=== PATIENT | female | born 1935 | race Caucasian/White ===

== ENCOUNTER 2017-07-29 20:27 | Inpatient (IN) ==
--- NOTE | 2017-07-30 00:55 | Event Note ---
Date of Encounter: 07/30/17 Time of Encounter: 00:53 Patient was seen and examined. I agree with the H&P as written by the Resident Physician. Please note that the patient is mostly unresponsive and minimal documentation was sent despite me asking for complete documentations to be sent over when we accepted the patient. We are requesting records to be sent just for completeness sake as the patient is mostly here for palliative purposes and plan of care unlikely to change with those records. I had an extensive talk with the family (son, daughter in law, and two grand-daughters with one of them being an RN). Briefly, the patient with a history of CAD, HTN, HLD, who had recently been diagnosed with a grade 1 Endometrial AdenoCA. She was recommended total hysterectomy and BSO. She went to [place] for that and underwent the procedure on 07/12. 2 hours post op, she became hemodynamically unstable and had signs of an internal bleed. She coded as well and was in PEA arrest. A code was ran and she had ROSC. She was taken emergently to the OR on POD 0 to try to locate a bleed. She ended up coding again in the OR and was shocked. She ended up getting abdominal packing and was taken the ICU intubated and on pressors. She was taken again to the OR 3 days later for packing removal and abdomen closure. Her stay was complicated by pseudomonas pneumonia and C. Diff. She was on abx for both. She has required significant amount of blood products. Family tells me about 40 units total of PRBCs, platelets, FFPs, Cryo. Eventually, family was given the option of a trach a couple of days ago. She had a living will that stated that she did not want life sustaining measures. They eventually extubated her a couple of days ago and was doing ok post extubation but has deteriorated since. She has become less and less responsive. She is unable to wake up. Code status was changed there to DNR-CCA. All abx and blood draws were stopped 2 days ago. Eventually, the family wanted her to be transferred here for a couple of reasons. One being that they wanted her to here when she dies. They are also not happy with the care there and told me "they are fed up". Patient is unresponsive. Pupils equal and reactive S1, S2, No m/r/g Diminished with course breath sounds throughout Rectal tube noted. A big vertical surgical incision with frankie noted. A couple of adjacent areas with 4x4's for skin tears Generalized anasarca Will admit the patient for comfort care and palliative to see in the morning No labs draws. No abs to be continued here Obtain records from [place] Patient seems to be resting comfortably now with no apparent distress Will add ativan PRN, Fentanyl PRN, Scopolamine patch
--- NOTE | 2017-07-30 01:38 | Internal Med History&Physical ---
Date of Encounter: 07/30/17 Time of Encounter: 01:00 Internal Medicine - H&P: HPI Chief complaint: Pain Admitted From: Intrahospital Transfer Plans for Post Hospital Care: Hospice - Home History of present illness: Ms. Herr is a 82 year old female with past medical history of CAD, hypertension , hyperlipidemia, recently diagnosed grade 1 endometrial adenocarcinoma. On 07/12, the patient underwent RATLH, BSO, SLND, vulvar biopsy, extensive SANDRA, small bowel oversew for grade 1 endometrial cancer. Final pathology demonstrated stage 1A endometrial carinoma with sentnel lyph nodes negative for metastatic disease, and lichen sclerosis of the vulva. The patient's immediate post-op course was complicated by hypotension for which he was transferred to the surgical ICU. At the ICU, she had cardiac arrest with PEA; ACLS with ROSC was performed. Arrest was due to acute blood loss anemia with undetectable Hgb at the time, requiring massive blood transfussion. Patient was then taken to the OR for emergent exploratory laparotomy, evacuation of hemoperitoneum, small bowel resection, oversew of pelvic area, packing placement, and wound vac placement. Patient required ventilator support, pressor support, and intermittent transfusion of blood products. Patient was again taken to the OR on 07/15/17 for exploratory laparotomy, removal of intraabdominal and pelvic packing, and small bowel reanastomosis. While in the ICU, patient developed C. diff infection and managed with PO vancomycin. Nutrition was maintained with tube feedings. A. fib was managed with amiodarone infusion and heparin drip. Patient remained intubated until 07/25 and was transitioned to BIPAP and RA. Family decided to make transition to hospice care on 07/29/17 and requested to be transfered to [facility] to be closer to home. Past Med Surg Social Fam HX - Past Medical History Medical history: coronary artery disease, hyperlipidemia, hypertension, RA, other Psychiatric history: no psych history - Past Surgical History Surgical History: other - Social History Smoking Status: Never smoker Smokeless Tobacco Status: No Alcohol use: none Drug use: none - Family History Father Living Status: Hx Family Cardiac Disorders: Yes Mother Living Status: Hx Family Cardiac Disorders: Yes (hypertension) Hx Family Cancer: Yes (liver cancer) Hx Family Endocrine Disorder: Yes (diabetes mellitus) Sister Hx Family Cardiac Disorders: Yes Hx Family Endocrine Disorder: Yes (diabetes) Hx Family Neuromuscular Disorders: Yes (CVA) Brother Hx Family Cardiac Disorders: Yes Hx Family Neuromuscular Disorders: Yes (seizures) Internal Medicine - H&P: Meds Furosemide [Lasix] 40 mg PO DAILY PRN 11/18/14 [History] Metoprolol [Lopressor] 12.5 mg PO BID 11/18/14 [History] [place]-3/Dha/Epa/Fish Oil [Fish Oil EC 1,200 mg Softgel] 1,200 mg PO DAILY [History] Potassium Chloride 20 meq PO BIDWM 11/18/14 [History] Docusate [Colace] 100 mg PO BID PRN #0 capsule 11/22/14 [Rx] Aspirin [Lo-Dose Aspirin EC] 81 mg PO DAILY 05/01/17 [History] Tramadol HCl [Ultram] 50 mg PO BID PRN 05/01/17 [History] Citalopram Hydrobromide [Citalopram HBr] 20 mg PO DAILY 05/28/17 [History] Ibuprofen [Motrin] 800 mg PO Q8HR PRN #30 tablet 05/28/17 [Rx] Lutein 6 mg PO DAILY 05/28/17 [History] Red Yeast Rice [Red Yeast Rice] 600 mg PO DAILY 05/28/17 [History] hydrALAZINE [HydrALAZINE] 25 mg PO BID 05/28/17 [History] 3 Allergy/AdvReac Type Severity Reaction Status Date / Time CISCO Inhibitors Allergy Cough Verified 05/28/17 08:27 ciprofloxacin [From Cipro] Allergy Rash Verified 05/28/17 08:27 Pneumococcal Vaccine Allergy Numbness Verified 05/28/17 08:27 [From Pnu-Imune] rifampin Allergy Rash Verified 05/28/17 08:27 Sulfa (Sulfonamide Allergy Itching Verified 05/28/17 08:27 Antibiotics) sulfamethizole Allergy Rash Verified 05/28/17 08:27 trimethoprim Allergy Rash Verified 05/28/17 08:27 lisinopril AdvReac Cough Verified 05/28/17 08:27 ROS unobtainable: due to mental status All Systems PM: A 10-system review of systems was performed and is negative for pertinent findings except as documented above in the HPI. - Constitutional Vitals: Temp Pulse Resp BP Pulse Ox 97.4 F L 70 14 158/74 97 07/30/17 00:35 07/30/17 00:35 07/30/17 00:35 07/30/17 00:35 07/30/17 00:35 Exam: Patient is unresponsive. - Head Head exam: Present: normocephalic - Eye Eye exam: Present: PERRL, conjuntiva pink, sclera anicteric Pupils: Present: PERRL - Neck Neck exam general surgery: Present: trachea midline. Absent: lymphadenopathy - Respiratory Respiratory exam: Present: respiratory distress, rhonchi, wheezes. Absent: accessory muscle use, rales - Cardiovascular Cardiovascular exam: Present: +S1, +S2, systolic murmur, tachycardia. Absent: diastolic murmur, gallop, rubs - GI/Abdominal GI/Abdominal exam: Present: hypoactive bowel sounds, rigid. Absent: distended, tenderness Additional comments: anasarca. - Extremities Exam Extremities exam: Present: warm, radial pulses palpable and symmetrical. Absent : calf tenderness, cyanotic, pedal edema - Neurological Exam Additional comments: altered. - Skin Skin exam: Present: dry, intact - Assessment and plan (1) Goals of care, counseling/discussion Current Visit: Yes Status: Acute Assessment and plan: Please refer to HPI. Patient here for hospice and comfort care. Palliative consult pending for goals of care. Continue with pain management Continue Ativan, Scopolamine patch, fentanyl. (2) Encephalitis Current Visit: Yes Status: Acute Assessment and plan: mental status due to multiple comorbidities. Please refer to HPI. Plan for hospice. - Time Spent With Patient Total time spent is greater than 50% in coordination of care (as documented) at patient's floor/unit and/or counseling patient: Greater than 35 minutes
[2017-07-30] MEDS ORDERED: *HR* LORazepam 2 MG/ML VIAL IVP PRN (02:47)
[2017-07-30] MEDS ORDERED: *HR* FentaNYL (PF) 100 MCG/2 ML VIAL IVP PRN (02:48)
[2017-07-30] MEDS ORDERED: Scopolamine Patch 1.5 MG PATCH.TD72 TD SCH (03:00)
[2017-07-30] MEDS ORDERED: Naloxone 0.4 MG/ML INJ IVP PRN ×2 (03:11→03:51)
[2017-07-30 07:42] VITALS: BP 136/76
[2017-07-30] MEDS ORDERED: Nystatin POWDER 30 GM BOTTLE TP SCH (09:00)
--- NOTE | 2017-07-30 10:14 | Discharge Summary ---
Orders not resulted at time of discharge: hospice admit Date of Encounter: 07/30/17 Time of Encounter: 10:12 - Discharge Diagnosis (1) Endometrial adenocarcinoma Priority: Primary Status: Acute Assessment and Plan: patient being discharged to hospice care (2) History of coronary artery stent placement Priority: Secondary Status: Chronic (3) Hypertension Priority: Secondary Status: Chronic Qualifiers: Hypertension type: essential hypertension Qualified Code(s): I10 - Essential (primary) hypertension (4) Obesity, Class III, BMI 40-49.9 (morbid obesity) Priority: Secondary Status: Chronic Hospital course: Ms. Herr is a 82 year old female - Time Spent with Patient Total time spent providing and/or coordinating discharge services: - Discharge Medications Home Medications: Metoprolol [Lopressor] 12.5 mg PO BID 11/18/14 [History] [place]-3/Dha/Epa/Fish Oil [Fish Oil EC 1,200 mg Softgel] 1,200 mg PO DAILY [History] Aspirin [Lo-Dose Aspirin EC] 81 mg PO DAILY 05/01/17 [History] Tramadol HCl [Ultram] 50 mg PO BID PRN 05/01/17 [History] Lutein 6 mg PO DAILY 05/28/17 [History] Red Yeast Rice [Red Yeast Rice] 600 mg PO DAILY 05/28/17 [History] hydrALAZINE [HydrALAZINE] 25 mg PO BID 05/28/17 [History] Citalopram [CeleXA] 20 mg PO DAILY 07/30/17 [History] Docusate Sodium [Dok] 100 mg PO DAILY 07/30/17 [History] Furosemide [Lasix] 40 mg PO DAILY PRN 07/30/17 [History] Potassium Chloride [K-Tab ER] 20 meq PO BID 07/30/17 [History] Allergies/Adverse Reactions: 3 Allergy/AdvReac Type Severity Reaction Status Date / Time CISCO Inhibitors Allergy Cough Verified 05/28/17 08:27 ciprofloxacin [From Cipro] Allergy Rash Verified 05/28/17 08:27 Pneumococcal Vaccine Allergy Numbness Verified 05/28/17 08:27 [From Pnu-Imune] rifampin Allergy Rash Verified 05/28/17 08:27 Sulfa (Sulfonamide Allergy Itching Verified 05/28/17 08:27 Antibiotics) sulfamethizole Allergy Rash Verified 05/28/17 08:27 trimethoprim Allergy Rash Verified 05/28/17 08:27 lisinopril AdvReac Cough Verified 05/28/17 08:27 Date of admission: 07/30/17 01:08 Primary care physician: Nazanin Schaefer CNP Consults: 07/30/17 03:04 Consult to Palliative Care [CONS] Routine Comment: Consulting Provider: Palliative [facility] [place] Reason for Consult: Patient with history of endometrial adenocarcinoma. very poor prognosis. requires comfort care. Please see patient and advice. Thank you. Call Completed: No Discharging clinician: Maureen Correa - Constitutional Vitals: Temp Pulse Resp BP Pulse Ox 97.5 F L 71 20 136/76 90 07/30/17 07:31 07/30/17 07:31 07/30/17 07:31 07/30/17 07:31 07/30/17 08:56 - Patient Status Disposition: Hospice - Home Condition: Critical Overall status at discharge: other - Discharge Instructions - Diet and Activity Activity: other Diet: other
--- NOTE | 2017-07-30 11:24 | Palliative - Consult Note ---
Date of Encounter: 07/30/17 Time of Encounter: 08:40 - Assessment and Plan (1) Bacteremia Current Visit: No Status: Acute Assessment and plan: no longer getting active treatment for this per family request trasition to hospice (2) Encephalitis Current Visit: Yes Status: Acute Assessment and plan: ams is multifactorial and the patient is medically very frail this will be hospice dx. not expected to recover from it (3) Goals of care, counseling/discussion Current Visit: Yes Status: Acute Assessment and plan: dnr cc pt is here for hospice eval and gip hospcie care, pt meets criteria based on overall fraility combined with untreated infection and ams bad enough that the patient is no longer eating and no further feeding support is going to be done pt is also s/p cardica arrest x2 Palliative-CN HPI - Data of Consult Patient: new to practice Requesting Physician: Wayne Andujar Primary Care Provider: Nazanin Schaefer CNP - Consult Narrative Palliative Care/Comfort Measures: Palliative care History of present illness: Ms. Herr is a 82 year old female pt transferred form [facility] for hospice evaluation. pt was found to have vagianl bleediiing sent to [place] for surgery for endometrial cancer, found to be non metastatic, but she suffered numerous post op complications including cardiac arrest x2 per family vent assoc pneumonia and c diff. Pt extubated 6 days ago (no trach or peg) and had done ok for the 1st 24 hrs or so but has been in constant deline since then. Family decided yesterday not to pursue any further agressive care and stoppped iv fluids removed feeding tube and stopped all antibiotics stopped all blood draws. Hospice was not approched but the transfer was accomplished trhough the hospitalist group. palliative is consulted for eol care and hospice eval CC: Wayne Andujar ams Past Med Surg Social Fam HX - Past Medical History Medical history: coronary artery disease, hyperlipidemia, hypertension, RA, other Psychiatric history: no psych history - Past Surgical History Surgical History: other - Social History Smoking Status: Never smoker Smokeless Tobacco Status: No Alcohol use: none Drug use: none - Family History Father Living Status: Hx Family Cardiac Disorders: Yes Mother Living Status: Hx Family Cardiac Disorders: Yes (hypertension) Hx Family Cancer: Yes (liver cancer) Hx Family Endocrine Disorder: Yes (diabetes mellitus) Sister Hx Family Cardiac Disorders: Yes Hx Family Endocrine Disorder: Yes (diabetes) Hx Family Neuromuscular Disorders: Yes (CVA) Brother Hx Family Cardiac Disorders: Yes Hx Family Neuromuscular Disorders: Yes (seizures) Medications and Allergies Metoprolol [Lopressor] 12.5 mg PO BID 11/18/14 [History] [place]-3/Dha/Epa/Fish Oil [Fish Oil EC 1,200 mg Softgel] 1,200 mg PO DAILY [History] Aspirin [Lo-Dose Aspirin EC] 81 mg PO DAILY 05/01/17 [History] Tramadol HCl [Ultram] 50 mg PO BID PRN 05/01/17 [History] Lutein 6 mg PO DAILY 05/28/17 [History] Red Yeast Rice [Red Yeast Rice] 600 mg PO DAILY 05/28/17 [History] hydrALAZINE [HydrALAZINE] 25 mg PO BID 05/28/17 [History] Citalopram [CeleXA] 20 mg PO DAILY 07/30/17 [History] Docusate Sodium [Dok] 100 mg PO DAILY 07/30/17 [History] Furosemide [Lasix] 40 mg PO DAILY PRN 07/30/17 [History] Potassium Chloride [K-Tab ER] 20 meq PO BID 07/30/17 [History] 3 Allergy/AdvReac Type Severity Reaction Status Date / Time CISCO Inhibitors Allergy Cough Verified 05/28/17 08:27 ciprofloxacin [From Cipro] Allergy Rash Verified 05/28/17 08:27 Pneumococcal Vaccine Allergy Numbness Verified 05/28/17 08:27 [From Pnu-Imune] rifampin Allergy Rash Verified 05/28/17 08:27 Sulfa (Sulfonamide Allergy Itching Verified 05/28/17 08:27 Antibiotics) sulfamethizole Allergy Rash Verified 05/28/17 08:27 trimethoprim Allergy Rash Verified 05/28/17 08:27 lisinopril AdvReac Cough Verified 05/28/17 08:27 ROS unobtainable: due to mental status Palliative Care-Exam - Constitutional Vitals: Temp Pulse Resp BP Pulse Ox 97.5 F L 71 20 136/76 90 07/30/17 07:31 07/30/17 07:31 07/30/17 07:31 07/30/17 07:31 07/30/17 08:56 General appearance: Present: no acute distress - Head Head Exam: Absent: atraumatic, normal inspection - Eye Eye exam: Present: normal appearance - ENT ENT exam: Present: normal exam - Neck Neck exam: Present: normal inspection - Respiratory Respiratory exam: Present: decreased breath sounds - Cardiovascular Cardiovascular exam: Present: RRR - GI/Abdominal Exam GI/Abdominal exam: Present: normal bowel sounds, soft. Absent: tenderness ( incision looks good) - Extremities Exam Extremities exam: Present: normal inspection. Absent: pedal edema, tenderness - Neurological Exam Neurological exam: Present: altered - Psychiatric Psychiatric exam: Absent: agitated, anxious - Skin Skin exam: Present: dry, warm Consult Discharge Plan - Plan Referrals: Nazanin Scheafer [employer] [Primary Care Provider] - Palliative Quality Palliative Quality: Screen for Code Status: Yes, Screen for Goals of Care: Yes, Screen for Pain: Yes, If Pain Regimen Started, Initiate Bowel Regimen: Yes, Screen for Nausea/Vomitting: Yes Code Status: 07/30/17 03:11 Resuscitation Status: Active [RES] Routine Comment: Resuscitation Status: DNR-Comfort Care
[2017-07-30] MEDS ORDERED: Atropine Sulfate 1% 40 DROP/2 ML BOTTLE SL PRN (12:31)
--- NOTE | 2017-07-30 12:51 | Event Note ---
Date of Encounter: 07/30/17 Time of Encounter: 12:38 Hospice Cnc Milling Machine Operator Certification of Terminal Illness: Hospice Benefit Period Start:07/30/17 Hospice Benefit Period End: +90 days Palliative Performance Scale (PPS):10% History: , pt meets criteria based on overall fraility combined with untreated infection and ams bad enough that the patient is no longer eating and no further feeding support is going to be done In addition pt has endometrial cancer and all agressive care has been stopped These findings support a life expectancy of six months or less. I attest that I have composed the above narrative based on my review of Anuel Herr medical records, or my examination of the patient. Physician Name: Santo Elena Cnc Milling Machine Operator, [facility], [facility] Palliative care Consultation Service
--- NOTE | 2017-07-30 12:59 | Death Note ---
Discharge Sum: Summary - Date and Time Date of admission: 07/30/17 01:08 Date of : 07/30/17 Time of : 12:40 - Summary Details: pt had been evaluated by myself and found to be hospice eligible and was in the process of transfer to [facility] hsopice status but passed before hospice could evaluate and complete the paperwork. pt had been transferrred to [facility] and treatemt of acute encephalopathy d/t bacteremia which was prob a result of recent surgery. cod respiratory arrest d/t encephalopthy, bacteremia recdent surgery comorbid cad, htn never a smoker - Additional Data Confirmation of as documented by pronouncing clinician: no pulse, no respirations, no heart sounds Family: at bedside Additional persons at bedside: jessica Attending/PCP notified?: Yes Attending physician: Wayen Andujar Was code activated?: No Autopsy requested?: No hand cloth examiner notified?: Yes Organ bank notified?: Yes Advance directives: Yes Hospice patient?: No (was transitioning to hospice) Discharge Sum: Diag - PCOD Probable Cause of : Respiratory arrest Discharge Sum: Prov - Provider Primary care physician: Nazanin Schaefer CNP Consults: 07/30/17 03:04 Consult to Palliative Care [CONS] Routine Comment: Consulting Provider: Palliative Care [place] Reason for Consult: Patient with history of endometrial adenocarcinoma. very poor prognosis. requires comfort care. Please see patient and advice. Thank you. Call Completed: No
== END 2017-07-30 12:40 | disposition hospice, home (50) | DRG 754 ==
LOC: 2ANU
PROVIDERS: ADMIT Internal Medicine; ATTEND Internal Medicine